=== PATIENT | male | born 1965 | race Caucasian/White ===

== ENCOUNTER 2018-05-13 04:32 | Outpatient (CLI) | payer BC | END 2018-05-13 23:59 | disposition home or self-care (01) | LOC: DIABETIC 04:32 | PROVIDERS: ATTEND Specialist | DX: E11.65 Type 2 diabetes mellitus with hyperglycemia (principal) | CPT/HCPCS: G0108 ==

== ENCOUNTER 2018-06-23 04:39 | Outpatient (CLI) | payer BC | END 2018-06-23 23:59 | disposition home or self-care (01) | LOC: DIABETIC 04:39 | PROVIDERS: ATTEND Specialist | DX: E11.65 Type 2 diabetes mellitus with hyperglycemia (principal) | CPT/HCPCS: G0108 ==